=== PATIENT | male | born 1965 | race African-American/Black ===

== ENCOUNTER → 2019-09-04 | Outpatient (CLI) | payer MEDICARE, MEDICAID ==
[2019-09-04 10:51] LABS: BASOPHIL % 0.3 % (0.0-0.2); EOSINOPHIL # 0.3 10^3/uL (0.0-0.2); EOSINOPHIL % 2.8 % (0.0-5.0); HEMOGLOBIN 12.9 g/dL (13.9-16.3); LYMPHOCYTES # 2.2 10^3/uL (1.0-4.8); LYMPHOCYTES % 23.3 % (24.0-44.0); MEAN CELL HGB 23.8 pg (26-34); MEAN CELL HGB CONCENTRATION 30.4 g/dL (33-37); MEAN CORP VOLUME 78.3 fL (78-100); MONOCYTES # 0.7 10^3/uL (0.3-0.8); MONOCYTES % 7.5 % (5.0-12.0); NEUTROPHIL # 6.1 10^3/uL (1.8-7.7); NEUTROPHILS % 65.8 % (41.0-85.0); PLATELET COUNT 177 10^3/uL (150-400); RED CELL DISTRIBUTION WIDTH 14.7 % (11.5-14.5); WHITE BLOOD CELL 9.2 10^3/uL (4.5-11.0)
[2019-09-04 10:54] LABS: BILIRUBIN,URINE NEGATIVE (NEGATIVE); UROBILINOGEN,URINE NORMAL (NEGATIVE)
--- NOTE | 2019-09-04 10:59 | PCM.EKG ---
[facility] Test Date: 2019-09-04 Test Time: 10:55:54 Pat Name: LEEANNA GOULD Department: Patient ID: [id number] Room: Gender: M Maintenance Leader: RT : 1965 Requested By: PRANAY DENG Order Number: [id number] Reading MD: Pranay Deng Measurements Intervals [place] Rate: 68 P: 69 MT: 158 QRS: 82 QRSD: 104 T: 214 QT: 406 QTc: 432 Interpretive Statements Sinus rhythm Abnormal T, consider ischemia, diffuse leads No previous ECG available for comparison Electronically Signed On 09-05-2019 21:27:56 [employer] by Pranay Deng Please click the below link to view image of tracing.
[2019-09-04 11:07] LABS: APPEARANCE,URINE CLEAR (CLEAR); UA COLOR YELLOW (YELLOW)
[2019-09-04 11:16] LABS: CALCIUM 9.3 mg/dL (8.4-10.5); CARBON DIOXIDE 30.3 mmol/L (20.0-32)
--- NOTE | 2019-09-04 11:35 | DIREP ---
PROCEDURE:CHEST 2 VIEWS COMPARISON:None. INDICATIONS:SOB FINDINGS: LUNGS/PLEURA:No significant pulmonary parenchymal abnormalities. No effusions. VASCULATURE:Normal. Unremarkable pulmonary vasculature. CARDIAC:Normal. No cardiac silhouette abnormality or cardiomegaly. MEDIASTINUM:Normal. No visible mass or adenopathy. BONES:Mild degenerative changes of the spine. OTHER:Negative. CONCLUSION:No acute cardiopulmonary abnormality. Dictated by: Dion Kelly M.D. on 09/04/2019 at 11:34 AM
[2019-09-04 11:58] LABS: ERYTHROCYTE SEDIMENTATION RATE 11 mm/hr (0-20)
== END | disposition home or self-care (01) ==
LOC: RAD 10:31
PROVIDERS: ATTEND Pediatrics
DX: I10 Essential (primary) hypertension (principal); R06.02 Shortness of breath; R53.81 Other malaise; M47.819 Spondylosis without myelopathy or radiculopathy, site unspecified
CPT/HCPCS: 36415; 71046; 80053; 80061; 83880; 85025; 85651; 93005

== ENCOUNTER → 2019-09-06 | Outpatient (CLI) | payer MEDICARE, MEDICAID ==
--- NOTE | 2019-09-06 12:23 | DIREP ---
PROCEDURE:XRAY HIP MIN 2VW-RT COMPARISON:None. INDICATIONS:BILATERAL HIP PAIN WITH DJD FINDINGS: BONES:Dysplastic changes to the hips. Associated degenerative changes bilaterally. Status post pinning of the right proximal femur. The tip of 1 of the screws is close to the articular surface of the femoral head. No apparent fracture. JOINTS:No dislocation. OTHER:No additional findings. CONCLUSION: 1. Bilateral hip dysplasia. Associated osteoarthritis. Status post right hip pinning. Dictated by: Azeem Pérez M.D. on 09/06/2019 at 12:18 PM
--- NOTE | 2019-09-06 12:59 | DIREP ---
PROCEDURE:XRAY HIP MIN 2VW-LT COMPARISON:[facility], , XRAY HIP MIN 2VW-RT, 09/06/2019, 09:05 AM. INDICATIONS:BILATERAL HIP PAIN WITH DJD FINDINGS: BONES:Deformity of the femoral neck (lateral bowling) is noted which likely is associated with hip dysplasia. No acute fracture is seen. JOINTS:Narrowing of the joint space is noted which is most severe laterally. SOFT TISSUES:Normal. OTHER:No additional findings. CONCLUSION: 1. Deformity of the proximal left femur noted as well as fairly severe arthritic changes of the left hip. No acute fracture is seen. Dictated by: Mckinley Romero M.D. on 09/06/2019 at 12:56 PM
== END | disposition home or self-care (01) ==
LOC: RAD 08:58
PROVIDERS: ATTEND Pediatrics
DX: M16.11 Unilateral primary osteoarthritis, right hip (principal); Q65.89 Other specified congenital deformities of hip
CPT/HCPCS: 73502

== ENCOUNTER 2019-09-30 10:44 | Emergency (ER) | payer MEDICARE, MEDICAID ==
[~2019-09-30] VITALS: Ht 180.3 cm; Wt 147.4 kg
[2019-09-30 11:03] VITALS: BP 151/104
[2019-09-30 11:04] VITALS: BP 151/104
[2019-09-30] MEDS ORDERED: PREDNISONE PO STA (11:11)
[2019-09-30] MEDS ORDERED: NORCO 10MG PO STA (11:11)
[2019-09-30] MEDS ORDERED: PREDNISONE ONE (11:15)
[2019-09-30] MEDS ORDERED: NORCO 10MG PO ONE (11:16)
--- NOTE | 2019-09-30 11:20 | ER.PDOC ---
General Chief Complaint: Lower Back Pain or Injury Stated Complaint: LOWER BACK PAIN Time seen by MD: 11:11 Source: patient Exam Limitations: no limitations History of Present Illness Timing/Duration: week, getting worse Severity/Quality: moderate Radiation: upper legs Method of Injury: prior injury Modifying Factors: improves with immobilization Associated Symptoms: lower back pain Prior symptoms/Treatment: Similar symptoms previous, Recenly Seen, Treated by Doctor Past Medical History Medical History: hypertension Surgical History: hip Social History Alcohol Use: occassionally Drug Use: none Reviewed Nursing Reviewed: Vital Signs, Abn. Noted Review of Systems All Other Systems: Reviewed and Negative Physical Exam General Appearance: No Apparent Distress, WD/WN HEENT: PERRL/EOMI, Normal ENT Inspection, TMs Normal, Pharynx Normal Neck: Non-Tender, Normal Alignment Cardiovascular/Respiratory: Regular Rate, Rhythm, No M/R/G, Normal Peripheral Pulses, No JVD, Normal Breath Sounds, No Respiratory Distress Gastrointestinal: Normal Bowel Sounds, No Organomegaly, No Pulsatile Mass, Non Tender, Soft Back: Normal Inspection, No CVA Tenderness, No Vertebral Tenderness 1 - tender 2 - radiation Extremities: Other (SLR 60 R) Neuro/Psych: Alert, commercial driver's license driver nml/symmetrical, mood/effect nml, No Motor/Sensory Deficits, Relexes nml Skin: Normal Color, Warm/Dry Results/Orders Results/Orders Orders - BRADLEY NAVA MD Prednisone (Prednisone) (09/30/19 11:11) Hydrocodone/Acetaminophen ([place] 10mg) (09/30/19 11:11) Vital Signs Date Time Temp Pulse Resp B/P (MAP) Pulse Ox O2 Delivery O2 Flow Rate FiO2 09/30/19 11:04 97.5 69 22 151/104 (120) 98 Room Air 09/30/19 11:03 97.5 69 22 09/30/19 10:56 97.5 69 22 98 Course Sepsis Screening Results: Posi: POSITIVE SEPSIS RISK Vitals & review Data Vital Sign - Last 24 Hours 09/30/19 09/30/19 09/30/19 10:56 11:03 11:04 Temp 97.5 97.5 97.5 Pulse 69 69 69 Resp 22 22 22 B/P (MAP) 151/104 (120) Pulse Ox 98 98 O2 Delivery Room Air O2 Sat by Pulse Oximetry: 98 Departure Time of Disposition: 11:33 Disposition: 01 HOME, SELF-CARE Impression: Primary Impression: Low back pain Condition: Stable Referrals: PRANAY DENG MD (PCP) PRIMARY CARE PROVIDER Duration or Time Spent with Pa: BRADLEY SHEIKH MD Sep 30, 2019 11:20
== END 2019-09-30 12:05 | disposition home or self-care (01) ==
LOC: ER 10:44
DX: M54.5 Low back pain (principal); I10 Essential (primary) hypertension
CPT/HCPCS: 99283; J7512